=== PATIENT | male | born 1950 | race Caucasian/White ===

== ENCOUNTER 2022-06-26 09:16 | Day surgery (SDC) | payer MEDICARE, OTHER ==
[~2022-06-26] VITALS: Ht 188 cm; Wt 107.5 kg
[~2022-06-26 09:16] MED LIST: AMLO1TAB24 PO; BSS IRRIG/VANCO(10MG)/TOBRA(5MG)/EPINEPH(1:1000-0.5CC)500ML BAG-ORONLY IR ONE; BUPR-71 PO; CEFUROXIME 1MG/0.1ML INTRACAMERAL INJ As Ordered ONE; CICL0.7716; CITA40TA7 PO; CYCLOPENTOLATE 1% OPHTH SOLN 2ML BTL OS SCH; DOXY-444 PO; DULA3PEN SC; ECOT81TA5 PO; HALO0.052 TOP; HYDR-3490 PO; INSU100I48 SC; LEVO175T2 PO; LIDOCAINE 1% SDV 5ML VIAL As Ordered ONE; LIDOCAINE 3.5 % 1ML OPHTH TOPICAL GEL OU ONE; LISI40TA4 PO; METO1TAB32 PO; MIDAZOLAM INJ 2MG/2ML VIAL As Ordered ONE; OFLOXACIN 0.3 % (OCUFLOX) OPTH SOL 5ML OS ONE; PHENYLEPHRINE 10% OPHTH SOL 5ML OS PRN; PHENYLEPHRINE 2.5% OPHTH SOL 2ML OS SCH; SIMV40TA20 PO; TROPICAMIDE 1% OPHTH SOLN 15ML OS SCH; VITA500C24 PO; fentaNYL 100 MCG/2 ML INJECTION As Ordered ONE
[2022-06-26 11:55] VITALS: BP 118/72
== END 2022-06-26 12:25 | disposition home or self-care (01) ==
LOC: M SDC 09:16
PROVIDERS: ATTEND Ophthalmology
DX: H25.12 Age-related nuclear cataract, left eye (principal); H57.03 Miosis; I25.2 Old myocardial infarction; I10 Essential (primary) hypertension; E11.9 Type 2 diabetes mellitus without complications; E03.9 Hypothyroidism, unspecified; Z98.84 Bariatric surgery status; Z79.899 Other long term (current) drug therapy
CPT/HCPCS: 66982; J0697; J2250; J3010; V2632